=== PATIENT | female | born 1995 | race Caucasian/White ===

== ENCOUNTER 2018-08-23 00:45 | Emergency (ER) | payer MEDICAID ==
[~2018-08-23] VITALS: Ht 165.1 cm; Wt 118.2 kg
[2018-08-23] MEDS ORDERED: ONDANSETRON 4MG ODT PO ONE (02:30)
[2018-08-23] MEDS ORDERED: MORPHINE SULFATE 10 MG/ML CPJ IM ONE (02:30)
[2018-08-23 03:40] LABS: CLARITY URINE CLOUDY (CLEAR); COLOR URINE YELLOW (YELLOW); KETONES URINE TRACE (NEGATIVE); LEUKOCYTE ESTERASE URINE 2+ (NEGATIVE); NITRITE URINE NEGATIVE (NEGATIVE); OCCULT BLOOD URINE 2+ (NEGATIVE); PROTEIN URINE NEGATIVE (NEGATIVE); SPECIFIC GRAVITY URINE 1.027 (1.005-1.030); UROBILINOGEN URINE 0.2 E.U./dL (0.2-1.0)
[2018-08-23 04:11] VITALS: BP 118/82
== END 2018-08-23 04:26 | disposition home or self-care (01) ==
LOC: ER 00:45
DX: N39.0 Urinary tract infection, site not specified (principal); J45.909 Unspecified asthma, uncomplicated; F12.10 Cannabis abuse, uncomplicated
CPT/HCPCS: 81003; 96372; 99283; J2270; Q0162; Z7610

== ENCOUNTER 2019-12-04 13:33 | Emergency (ER) | payer SELFPAY ==
[~2019-12-04] VITALS: Ht 170.2 cm; Wt 160.0 kg
[2019-12-04 15:30] VITALS: BP 135/79
== END 2019-12-04 15:31 | disposition home or self-care (01) ==
LOC: ER 13:33
DX: J01.90 Acute sinusitis, unspecified (principal); J06.9 Acute upper respiratory infection, unspecified; R03.0 Elevated blood-pressure reading, without diagnosis of hypertension
CPT/HCPCS: 99281; 99283

== ENCOUNTER 2023-01-20 08:38 | Emergency (ER) | payer MEDICAID ==
[~2023-01-20] VITALS: Ht 167.6 cm; Wt 160.0 kg
[2023-01-20 09:01] VITALS: BP 134/96
[2023-01-20] MEDS ORDERED: ACETAMINOPHEN 325MG TABLET PO ONE (11:00)
[2023-01-20] MEDS ORDERED: IBUP-2029 MT (13:39)
[2023-01-20] MEDS ORDERED: AMOX-494 MT (13:40)
== END 2023-01-20 13:57 | disposition home or self-care (01) ==
LOC: ER 09:08
DX: J18.9 Pneumonia, unspecified organism (principal); R50.9 Fever, unspecified; Z20.822 Contact with and (suspected) exposure to COVID-19
CPT/HCPCS: 71045; 87426; 87804; 99284; C9803

== ENCOUNTER 2024-04-06 14:14 | Emergency (ER) | payer MEDICAID ==
[~2024-04-06] VITALS: Ht 170.2 cm; Wt 137.0 kg
[~2024-04-06 14:14] MED LIST: AMOX-494 MT; IBUP-2029 MT
[2024-04-06 14:24] VITALS: BP 162/101; PULSE 89; RESP 18; TEMP 99.1; O2SAT 99
[2024-04-06] MEDS ORDERED: P50 MT (16:54)
[2024-04-06] MEDS ORDERED: GUAI237L83 MT (16:54)
[2024-04-06] MEDS ORDERED: AZIT250T12 MT (16:54)
[2024-04-06] MEDS ORDERED: ALBU6.7H15 INH (16:54)
== END 2024-04-06 17:16 | disposition home or self-care (01) ==
LOC: ER 14:14
DX: J45.909 Unspecified asthma, uncomplicated (principal)
CPT/HCPCS: 71045; 99283

== ENCOUNTER 2025-05-23 19:42 | Emergency (ER) | payer OTHER, MEDICAID ==
[~2025-05-23] VITALS: Ht 165.1 cm; Wt 127.0 kg
[~2025-05-23 19:42] MED LIST changes: +ALBU6.7H15 INH; +AZIT250T12 MT; +GUAI237L83 MT; +P50 MT
[2025-05-23 19:51] VITALS: O2SAT 99
[2025-05-24] MEDS: IBUPROFEN 800MG TABLET PO ONE (00:56)
[2025-05-24] MEDS: HYDROCODONE/ACETAMINOPHEN 5/325MG TABLET PO ONE (00:56)
[2025-05-24] MEDS ORDERED: IBUP-2029 MT (01:02)
[2025-05-24 01:17] VITALS: BP 155/97; PULSE 96; RESP 18; TEMP 37; O2SAT 99
== END 2025-05-24 01:21 | disposition home or self-care (01) ==
LOC: ER 19:42
DX: G89.29 Other chronic pain (principal); M25.562 Pain in left knee; J45.909 Unspecified asthma, uncomplicated; V89.2XXA Person injured in unspecified motor-vehicle accident, traffic, initial encounter; Y93.89 Activity, other specified; Y92.89 Other specified places as the place of occurrence of the external cause; Y99.8 Other external cause status
CPT/HCPCS: 73560; 99283